=== PATIENT | female | born 1950 | race Caucasian/White ===

== ENCOUNTER 2021-12-29 11:12 | Day surgery (SDC) | payer MEDICARE ==
[~2021-12-29] VITALS: Ht 162.6 cm; Wt 57.0 kg
[2021-12-29] MEDS ORDERED: ATOR10 PO (11:48)
[2021-12-29] MEDS ORDERED: LOSA50 PO (11:48)
[2021-12-29] MEDS ORDERED: PROLIA60 MG/1 ML SQ (11:49)
[2021-12-29] MEDS ORDERED: OMEP20ER PO (11:49)
[2021-12-29] MEDS ORDERED: LETR2.5 (11:49)
[2021-12-29] MEDS ORDERED: TERB250 PO (11:50)
== END 2021-12-29 15:07 | disposition home or self-care (01) ==
LOC: ORSCSDS 11:12
PROVIDERS: Podiatrist Foot & Ankle Surgery
PROC: 0SGH04Z Fusion of Right Tarsal Joint with Internal Fixation Device, Open Approach (ICD-10-PCS; principal; 2021-12-29 12:30)
DX: M20.11 Hallux valgus (acquired), right foot (principal); I10 Essential (primary) hypertension; K21.9 Gastro-esophageal reflux disease without esophagitis; Z79.899 Other long term (current) drug therapy; Z85.3 Personal history of malignant neoplasm of breast
CPT/HCPCS: 93005; 93010; A9270; C1776; J1100; J2250; J2405; J2704; J3010; J3370; J7060; J7120